=== PATIENT | male | born 1965 | race Caucasian/White ===

== ENCOUNTER 2020-08-24 10:14 | Emergency (ER) | payer MEDICARE, OTHER ==
[~2020-08-24 10:14] MED LIST: LOPRESSOR 25 MG25 MG PO
[2020-08-24 14:04] LABS: HEMOGLOBIN 15.9 gm/dl (14.0-17.5); RED BLOOD COUNT 4.94 M/UL (4.20-5.50); WHITE BLOOD COUNT 6.6 K/UL (4.5-11.0)
[2020-08-24 14:23] LABS: BUN/CREATININE RATIO 12 (0-10)
[2020-08-24] MEDS ORDERED: LAMISIL AT 15 G15 GM TOP (16:29)
[2020-08-24] MEDS ORDERED: CVS POLY BACITR28 G1 TP (16:29)
[2020-08-24] MEDS ORDERED: VIBRAMYCIN 100100 MG PO (16:29)
== END 2020-08-24 17:15 | disposition home or self-care (01) ==
LOC: ER1 10:14
PROVIDERS: Emergency Medicine
DX: L03.116 Cellulitis of left lower limb (principal); B35.3 Tinea pedis; G35 Multiple sclerosis
CPT/HCPCS: 80053; 83605; 85025; 87040; 93971; 99284

== ENCOUNTER → 2020-09-02 | Outpatient (CLI) | payer MEDICARE, OTHER ==
[~2020-09-02] MED LIST changes: +CVS POLY BACITR28 G1 TP; +LAMISIL AT 15 G15 GM TOP; +VIBRAMYCIN 100100 MG PO
== END ==
LOC: WCC 10:20
DX: I87.2 Venous insufficiency (chronic) (peripheral) (principal); L03.116 Cellulitis of left lower limb; G90.09 Other idiopathic peripheral autonomic neuropathy; I25.10 Atherosclerotic heart disease of native coronary artery without angina pectoris; E66.01 Morbid (severe) obesity due to excess calories; G35 Multiple sclerosis
CPT/HCPCS: 87070; 87205; G0463

== ENCOUNTER → 2020-09-04 | Outpatient (CLI) | payer MEDICARE, OTHER | LOC: WCC 10:45 | DX: I87.2 Venous insufficiency (chronic) (peripheral) (principal); L97.929 Non-pressure chronic ulcer of unspecified part of left lower leg with unspecified severity; S81.802A Unspecified open wound, left lower leg, initial encounter; I25.10 Atherosclerotic heart disease of native coronary artery without angina pectoris; I25.2 Old myocardial infarction; Z79.2 Long term (current) use of antibiotics; Z79.899 Other long term (current) drug therapy; X58.XXXA Exposure to other specified factors, initial encounter ==

== ENCOUNTER → 2020-09-07 | Outpatient (CLI) | payer MEDICARE, OTHER | LOC: WCC 08:09 | DX: L03.116 Cellulitis of left lower limb (principal); R06.00 Dyspnea, unspecified; I25.10 Atherosclerotic heart disease of native coronary artery without angina pectoris; G35 Multiple sclerosis; G90.09 Other idiopathic peripheral autonomic neuropathy; R73.01 Impaired fasting glucose; E66.01 Morbid (severe) obesity due to excess calories; Z72.0 Tobacco use | CPT/HCPCS: G0463 ==

== ENCOUNTER → 2020-09-10 | Outpatient (CLI) | payer MEDICARE, OTHER | LOC: WCC 13:00 | DX: L97.822 Non-pressure chronic ulcer of other part of left lower leg with fat layer exposed (principal); I25.10 Atherosclerotic heart disease of native coronary artery without angina pectoris; G62.9 Polyneuropathy, unspecified; I25.2 Old myocardial infarction | CPT/HCPCS: G0463 ==

== ENCOUNTER → 2020-09-15 | Outpatient (CLI) | payer MEDICARE, OTHER | LOC: WCC 08:20 | DX: L03.116 Cellulitis of left lower limb (principal); R60.0 Localized edema; E66.01 Morbid (severe) obesity due to excess calories; M79.662 Pain in left lower leg; I25.10 Atherosclerotic heart disease of native coronary artery without angina pectoris; G90.09 Other idiopathic peripheral autonomic neuropathy; Z72.0 Tobacco use; G35 Multiple sclerosis | CPT/HCPCS: 97597 ==

== ENCOUNTER → 2020-09-22 | Outpatient (CLI) | payer MEDICARE, OTHER | LOC: WCC 08:11 | DX: L97.821 Non-pressure chronic ulcer of other part of left lower leg limited to breakdown of skin (principal); R60.0 Localized edema; L03.116 Cellulitis of left lower limb; E66.01 Morbid (severe) obesity due to excess calories; I25.10 Atherosclerotic heart disease of native coronary artery without angina pectoris; G90.09 Other idiopathic peripheral autonomic neuropathy; G35 Multiple sclerosis ==

== ENCOUNTER → 2020-10-14 | Outpatient (CLI) | payer MEDICARE, OTHER | LOC: WCC 09:06 | PROC: 0JBP0ZZ Excision of Left Lower Leg Subcutaneous Tissue and Fascia, Open Approach (ICD-10-PCS; principal; 2020-10-14) | DX: I96 Gangrene, not elsewhere classified (principal); L97.822 Non-pressure chronic ulcer of other part of left lower leg with fat layer exposed; L03.116 Cellulitis of left lower limb; I25.10 Atherosclerotic heart disease of native coronary artery without angina pectoris; G35 Multiple sclerosis; G90.09 Other idiopathic peripheral autonomic neuropathy; I25.2 Old myocardial infarction; E66.01 Morbid (severe) obesity due to excess calories; Z68.32 Body mass index [BMI] 32.0-32.9, adult; Z79.2 Long term (current) use of antibiotics ==

== ENCOUNTER → 2020-10-21 | Outpatient (CLI) | payer MEDICARE, OTHER | LOC: EXRD 14:03 | DX: R60.0 Localized edema (principal); M79.662 Pain in left lower leg; L03.116 Cellulitis of left lower limb; I25.10 Atherosclerotic heart disease of native coronary artery without angina pectoris; G35 Multiple sclerosis; G90.09 Other idiopathic peripheral autonomic neuropathy; E66.01 Morbid (severe) obesity due to excess calories; I73.9 Peripheral vascular disease, unspecified; Z72.0 Tobacco use | CPT/HCPCS: 93925 ==

== ENCOUNTER → 2020-10-28 | Outpatient (CLI) | payer MEDICARE, OTHER | LOC: WCC 09:11 | DX: I87.2 Venous insufficiency (chronic) (peripheral) (principal); L97.921 Non-pressure chronic ulcer of unspecified part of left lower leg limited to breakdown of skin; I25.10 Atherosclerotic heart disease of native coronary artery without angina pectoris; G90.09 Other idiopathic peripheral autonomic neuropathy; L03.116 Cellulitis of left lower limb; G35 Multiple sclerosis; E66.01 Morbid (severe) obesity due to excess calories; I73.9 Peripheral vascular disease, unspecified; F17.210 Nicotine dependence, cigarettes, uncomplicated; R60.0 Localized edema; Z68.32 Body mass index [BMI] 32.0-32.9, adult; Z79.2 Long term (current) use of antibiotics ==

== ENCOUNTER → 2020-11-18 | Outpatient (CLI) | payer MEDICARE, OTHER | LOC: WCC 08:52 | DX: R60.0 Localized edema (principal); E66.01 Morbid (severe) obesity due to excess calories; M79.662 Pain in left lower leg; I25.10 Atherosclerotic heart disease of native coronary artery without angina pectoris; G90.09 Other idiopathic peripheral autonomic neuropathy; Z72.0 Tobacco use; L03.116 Cellulitis of left lower limb; G35 Multiple sclerosis; I73.9 Peripheral vascular disease, unspecified | CPT/HCPCS: G0463 ==

== ENCOUNTER → 2020-12-02 | Outpatient (CLI) | payer MEDICARE, OTHER | LOC: HEART 5 11-09 11:00 | DX: R60.0 Localized edema (principal); M79.662 Pain in left lower leg; E66.01 Morbid (severe) obesity due to excess calories; I25.10 Atherosclerotic heart disease of native coronary artery without angina pectoris; G90.09 Other idiopathic peripheral autonomic neuropathy; Z72.0 Tobacco use; L03.116 Cellulitis of left lower limb; G35 Multiple sclerosis | CPT/HCPCS: 93970 ==

== ENCOUNTER 2021-02-10 01:11 | Emergency (ER) | payer MEDICARE ==
[2021-02-10 01:33] LABS: HEMOGLOBIN 16.2 gm/dl (14.0-17.5); RED BLOOD COUNT 5.12 M/UL (4.20-5.50); WHITE BLOOD COUNT 9.7 K/UL (4.5-11.0)
[2021-02-10 01:58] LABS: BUN/CREATININE RATIO 11 (0-10)
== END 2021-02-10 01:49 | disposition admitted as inpatient to this hospital (09) ==
LOC: ER1 01:11
PROVIDERS: Family Medicine
DX: U07.1 COVID-19 (principal); I21.3 ST elevation (STEMI) myocardial infarction of unspecified site; F17.210 Nicotine dependence, cigarettes, uncomplicated
CPT/HCPCS: 51702; 71045; 80053; 82550; 82553; 83874; 84484; 85025; 85347; 85610; 85730; 93005; 94760; 99152; 99153; 99285; C1725; C1769; C1887; J0330; J0461; J1644; J2250; J2270; J2370; J2405; J7040; Q9965; U0002

== ENCOUNTER → 2021-10-05 | Outpatient (CLI) | payer MEDICARE ==
[~2021-10-05] MED LIST changes: +ASPIRIN EC81 MG PO; +ATORVASTATIN CA20 MG PO; +CLOPIDOGREL75 MG PO; +FUROSEMIDE40 MG PO; +GABAPENTIN300 MG PO; +HYDROCODON-ACE1 EAC4 PO; +POTASSIUM CHLO20 ME2 PO; +PROTONIX 40 MG40 M1 PO; +ZOFRAN ODT 4 MG4 MG PO
== END ==
LOC: CT 14:00
DX: H66.91 Otitis media, unspecified, right ear (principal); H71.01 Cholesteatoma of attic, right ear; H69.93 Unspecified Eustachian tube disorder, bilateral
CPT/HCPCS: 36415; 70482; 82565; 84520; Q9967